=== PATIENT | male | born 2000 | race Two or more races ===

== ENCOUNTER 2023-04-19 18:23 | Emergency (ER) | payer SELFPAY ==
[2023-04-19 18:44] VITALS: BP 140/88; PULSE 104; RESP 18; TEMP 98.7; BMI 37.1
[2023-04-19] MEDS ORDERED: ACETAMINOPHEN 500 MG TABLET (FP) PO ONE (19:39)
[2023-04-19] MEDS ORDERED: IBUPROFEN 600 MG TABLET (FP) PO ONE ×2 (19:40→19:48)
[2023-04-19] MEDS ORDERED: ACETAMINOPHEN 500 MG TABLET (FP) ONE (19:49)
[2023-04-19] MEDS ORDERED: KETOROLAC TROMETHAMINE 30 MG/1 ML VIAL IM ONE (21:31)
[2023-04-19] MEDS ORDERED: KETOROLAC TROMETHAMINE 30 MG/1 ML VIAL ONE (21:32)
== END 2023-04-19 21:40 | disposition home or self-care (01) ==
LOC: JERFT 18:23
PROC: 3E0233Z Introduction of Anti-inflammatory into Muscle, Percutaneous Approach (ICD-10-PCS; principal; 2023-04-19)
DX: S59.902A Unspecified injury of left elbow, initial encounter (principal); M25.522 Pain in left elbow; M25.512 Pain in left shoulder; R42 Dizziness and giddiness; W10.8XXA Fall (on) (from) other stairs and steps, initial encounter; Y92.813 Airplane as the place of occurrence of the external cause
CPT/HCPCS: 73030-TC-LT-FY; 73070-TC-LT-FY; 99284-25